=== PATIENT | female | born 1975 | race Caucasian/White ===

== ENCOUNTER → 2019-09-11 10:25 | Outpatient (BNVA) | payer MEDICARE, SELFPAY | PROVIDERS: PCP Family Medicine; Visit Provider Internal Medicine Rheumatology | DX: L40.59 Other psoriatic arthropathy (principal); Z79.899 Other long term (current) drug therapy; L40.8 Other psoriasis; Z11.59 Encounter for screening for other viral diseases; Z72.89 Other problems related to lifestyle; L40.9 Psoriasis, unspecified | CPT/HCPCS: 36415; 80076; 82565; 85025; 85651; 86140; 86704; 86803; 87340 ==

== ENCOUNTER → 2019-09-11 10:32 | Outpatient (BNVA) | payer MEDICARE, SELFPAY | PROVIDERS: PCP Family Medicine; Visit Provider Internal Medicine Rheumatology | DX: L40.59 Other psoriatic arthropathy (principal); Z79.899 Other long term (current) drug therapy; L40.9 Psoriasis, unspecified | CPT/HCPCS: 85025 ==

== ENCOUNTER → 2019-12-04 11:24 | Outpatient (BNVA) | payer MEDICARE, SELFPAY | PROVIDERS: PCP Family Medicine; Visit Provider Internal Medicine | DX: M06.9 Rheumatoid arthritis, unspecified (principal); G62.9 Polyneuropathy, unspecified; F17.210 Nicotine dependence, cigarettes, uncomplicated; R21 Rash and other nonspecific skin eruption | CPT/HCPCS: 36415; 80053; 85025; 85651; 86140; 86812; 99213 ==

== ENCOUNTER → 2020-01-15 14:51 | Outpatient (BNVA) | payer MEDICARE, SELFPAY | PROVIDERS: PCP Family Medicine; Visit Provider Internal Medicine Rheumatology | DX: M06.9 Rheumatoid arthritis, unspecified (principal); Z79.899 Other long term (current) drug therapy | CPT/HCPCS: 36415; 80053; 85025 ==

== ENCOUNTER → 2020-05-15 09:13 | Outpatient (BNVA) | payer MEDICARE, SELFPAY | PROVIDERS: PCP Family Medicine; Visit Provider Internal Medicine | DX: M06.9 Rheumatoid arthritis, unspecified (principal); R74.01 Elevation of levels of liver transaminase levels; Z79.899 Other long term (current) drug therapy; Z11.1 Encounter for screening for respiratory tuberculosis; E11.9 Type 2 diabetes mellitus without complications; E87.6 Hypokalemia; F17.210 Nicotine dependence, cigarettes, uncomplicated | CPT/HCPCS: 36415; 80053; 85025; 85651; 86140; 86480; 99214 ==

== ENCOUNTER → 2020-08-15 09:41 | Outpatient (BNVA) | payer MEDICARE, MEDICAID, SELFPAY | PROVIDERS: PCP Family Medicine; Visit Provider Internal Medicine | DX: M06.9 Rheumatoid arthritis, unspecified (principal); R74.01 Elevation of levels of liver transaminase levels; E78.5 Hyperlipidemia, unspecified; Z79.899 Other long term (current) drug therapy; F17.210 Nicotine dependence, cigarettes, uncomplicated | CPT/HCPCS: 36415; 80053; 80061; 85025; 85651; 86140; 99214 ==

== ENCOUNTER → 2021-01-20 08:53 | Outpatient (BNVA) | payer OTHER, MEDICARE, MEDICAID, SELFPAY | PROVIDERS: PCP Family Medicine; Visit Provider Internal Medicine | DX: M06.9 Rheumatoid arthritis, unspecified (principal); R74.01 Elevation of levels of liver transaminase levels; Z11.59 Encounter for screening for other viral diseases; E87.6 Hypokalemia; G62.9 Polyneuropathy, unspecified; Z87.891 Personal history of nicotine dependence | CPT/HCPCS: 99214 ==

== ENCOUNTER → 2022-09-04 08:58 | Outpatient (BNVA) | payer MEDICARE, MEDICAID, SELFPAY | PROVIDERS: PCP Family Medicine; Visit Provider Internal Medicine | DX: M06.9 Rheumatoid arthritis, unspecified (principal); R74.01 Elevation of levels of liver transaminase levels; G62.9 Polyneuropathy, unspecified | CPT/HCPCS: 99214 ==

== ENCOUNTER → 2022-12-11 08:49 | Outpatient (BNVA) | payer MEDICARE, MEDICAID, SELFPAY | PROVIDERS: PCP Family Medicine; Visit Provider Internal Medicine | DX: M06.9 Rheumatoid arthritis, unspecified (principal); G62.9 Polyneuropathy, unspecified | CPT/HCPCS: 99214 ==

== ENCOUNTER → 2023-05-28 08:33 | Outpatient (BNVA) | payer MEDICARE, MEDICAID, SELFPAY | PROVIDERS: PCP Family Medicine; Visit Provider Internal Medicine | DX: M06.9 Rheumatoid arthritis, unspecified (principal); G62.9 Polyneuropathy, unspecified | CPT/HCPCS: 99214 ==